=== PATIENT | male | born 1975 | race Caucasian/White ===

== ENCOUNTER → 2022-07-07 13:15 | Outpatient (CLI) | payer OTHER, SELFPAY ==
--- NOTE | 2022-07-07 13:19 | DI.RAD.S_ITS ---
PROCEDURE: XR FINGER LT MIN 2V INDICATIONS: Left index finger injury TECHNIQUE: AP hand, 2 views of the 4th finger(s) acquired. COMPARISON: None. FINDINGS: Bones: Longitudinal fracture through the base of the 4th middle phalanx stents to the proximal interphalangeal joint with dorsal subluxation of the middle phalanx at the PIP. Normal bone mineralization Soft tissues: No suspicious soft tissue calcifications. IMPRESSION: Intra-articular longitudinal fracture through the base of the 4th middle phalanx Approved by: Dhruv Tan M.D. on 07/07/2022 at 17:29
== END ==
PROVIDERS: Referring Provider Nurse Practitioner Family; Visit Provider Nurse Practitioner Family
DX: S62.625A Displaced fracture of middle phalanx of left ring finger, initial encounter for closed fracture (principal); X58.XXXA Exposure to other specified factors, initial encounter
CPT/HCPCS: 73140